=== PATIENT | female | born 1985 | race Caucasian/White ===

== ENCOUNTER 2018-04-17 14:43 | Emergency (ER) | payer BC ==
[~2018-04-17] VITALS: Ht 165.1 cm; Wt 66.4 kg
[~2018-04-17 14:43] MED LIST: NORCO 325 MG-51 TAB PO; ZOFRAN ODT4 MG PO
[2018-04-17 14:46] VITALS: BP 117/59; TEMP 98.2
[2018-04-17 15:14] LABS: COLLECTION METHOD CLEAN CATCH
[2018-04-17 15:22] LABS: MUCOUS Present /lpf; PH 5 (5-8); URINE APPEARANCE Hazy; URINE BACTERIA Rare /hpf; URINE BILIRUBIN Negative (NEGATIVE); URINE BLOOD Negative (NEGATIVE); URINE COLOR Yellow; URINE GLUCOSE Negative (NEGATIVE); URINE KETONE Negative (NEGATIVE); URINE LEUKOCYTE ESTERASE 1+ (NEGATIVE); URINE NITRATE Negative (NEGATIVE); URINE PROTEIN(semi-quant) Negative (NEGATIVE); URINE RBC 0-2 /hpf; URINE UROBILINOGEN Negative (NEGATIVE)
[2018-04-17] MEDS ORDERED: PRENATAL PO (15:25)
[2018-04-17 16:39] VITALS: PULSE 87
== END 2018-04-17 16:39 | disposition home or self-care (01) ==
LOC: COL.ER 14:43
PROVIDERS: Physician Assistant
DX: O9A.212 Injury, poisoning and certain other consequences of external causes complicating pregnancy, second trimester (principal); S39.91XA Unspecified injury of abdomen, initial encounter; Z3A.20 20 weeks gestation of pregnancy; W01.0XXA Fall on same level from slipping, tripping and stumbling without subsequent striking against object, initial encounter; Y92.89 Other specified places as the place of occurrence of the external cause